=== PATIENT | male | born 1990 | race Caucasian/White ===

== ENCOUNTER 2018-07-20 19:22 | Inpatient (IN) | payer MEDICAID, OTHER ==
[~2018-07-20] VITALS: Ht 167.6 cm; Wt 77.3 kg
[2018-07-20] MEDS ORDERED: HYDROcodone/acetaminophen 10/325mg tab PO STA (19:33)
[2018-07-20] MEDS ORDERED: normal saline 1000ML IV soln IVB ONE (19:40)
[2018-07-20] MEDS ORDERED: ketorolac tromethamine 15mg/ml inj. IV ONE (19:40)
[2018-07-20] MEDS ORDERED: HYDROmorphone 1 mg/ml syringe IV ONE (19:45)
--- NOTE | 2018-07-20 19:59 | NUR ---
CONTACTED G[facility] AND RECEIVED
[2018-07-20] MEDS ORDERED: TETanus/Pertussis (Acell)/Diphther VAC/PF (Tdap-Adult) 0.5ml syringe IM ONE (20:10)
[2018-07-20] MEDS ORDERED: ceFAZolin 1GM/D5W- ADD-VANTAGE 50 ML IV ONE (20:15)
[2018-07-20 20:45] LABS: BASOPHILS % (AUTO) 0.3 % (0-1); EOSINOPHILS # (AUTO) 0.1 X10'3 (0-0.9); EOSINOPHILS % (AUTO) 1.2 % (0-6); HEMATOCRIT 45.9 % (42.0-52.0); HEMOGLOBIN 15.4 g/dl (14.0-17.9); LYMPHOCYTES # (AUTO) 2.3 X10'3 (1.1-4.8); MEAN CORPUSCULAR HEMOGLOBIN 30.2 PG (27.0-31.0); MEAN CORPUSCULAR HGB CONC 33.6 g/dL (33.0-36.5); MEAN CORPUSCULAR VOLUME 89.6 FL (78-98); MEAN PLATELET VOLUME 8.4 FL (7.4-10.4); MONOCYTES # (AUTO) 0.7 X10'3 (0-0.9); MONOCYTES % (AUTO) 5.7 % (2-12); NEUTROPHILS # (AUTO) 8.9 X10'3 (1.8-7.7); NEUTROPHILS % (AUTO) 73.8 % (42-75); PLATELET COUNT 195 X10'3 (140-440); RED BLOOD COUNT 5.12 X10'6 (4.70-6.10); RED CELL DISTRIBUTION WIDTH 13.1 % (11.5-14.5)
[2018-07-20] MEDS ORDERED: ondansetron/PF 4mg/2ml inj IV PRN (20:45)
[2018-07-20] MEDS ORDERED: acetaminophen 325mg tablet PO PRN ×2 (20:45)
[2018-07-20] MEDS ORDERED: magnesium Cl slow-release 64mg tablet PO PRN (20:45)
[2018-07-20] MEDS ORDERED: morphine 2 MG/ML inj. syringe IV PRN (20:45)
[2018-07-20] MEDS ORDERED: potassium Cl 20 mEq SR tablet PO PRN ×2 (20:45)
[2018-07-20] MEDS ORDERED: magnesium 4gm in 100ml NS 100 ML IV PRN (20:45)
[2018-07-20] MEDS ORDERED: magnesium hydroxide 30ml (MOM) UD suspension PO PRN (20:45)
[2018-07-20] MEDS ORDERED: mag hydrox/Alum hydrox/simeth 30ml oral suspension PO PRN (20:45)
[2018-07-20] MEDS ORDERED: potassium Cl 40MEQ/NS 500ml 500 ML IV PRN (20:45)
[2018-07-20] MEDS ORDERED: magnesium 2GM in 50ml NS 50 ML IV PRN (20:45)
[2018-07-20 20:57] LABS: ALANINE AMINOTRANSFERASE 166 U/L (12-78); ALBUMIN 3.8 G/DL (3.4-5.0); ALBUMIN/GLOBULIN RATIO 1.3 (1.1-1.5); ALKALINE PHOSPHATASE 61 IU/L (46-116); ANION GAP 8 (8-16); ASPARTATE AMINO TRANSFERASE 45 U/L (10-37); BILIRUBIN,TOTAL 0.8 MG/DL (0.1-1.0); BLOOD UREA NITROGEN 16 MG/DL (7-18); BUN/CREATININE RATIO 17.6 (5.4-32.0); CALCIUM 8.3 MG/DL (8.5-10.1); CHLORIDE 106 MMOL/L (99-107); CREATININE 0.91 MG/DL (0.60-1.10); GLUCOSE 122 MG/DL (70-104); POTASSIUM 3.4 MMOL/L (3.5-5.1); SODIUM 139 MMOL/L (135-145); TOTAL CARBON DIOXIDE 25.1 MMOL/L (24-32); TOTAL PROTEIN 6.8 G/DL (6.4-8.2); eGFR > 90 ML/MIN
[2018-07-20 21:00] VITALS: BP 124/91
[2018-07-20] MEDS: normal saline 1000ml 1,000 ML IV SCH ×2 (21:10→23:55)
[2018-07-20 21:18] LABS: PARTIAL THROMBOPLASTIN TIME 24 SECONDS (22-32)
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
[2018-07-20] MEDS ORDERED: NO HOME MEDS (21:33)
--- NOTE | 2018-07-20 22:21 | NUR ---
Paged network control technician to come stabilize arm. Patient unable to go to surgery tonight.
[2018-07-20] MEDS: HYDROcodone/acetaminophen 5mg/325mg tablet PO PRN ×2 (23:05→23:22)
[2018-07-20] MEDS: morphine 2 MG/ML inj. syringe IV PRN (23:27)
[2018-07-21] VITALS (17 sets, daily range): BP systolic 99–129; BP diastolic 63–89
[2018-07-21] MEDS ORDERED: ceFAZolin 1GM/D5W- ADD-VANTAGE 50 ML IV SCH
[2018-07-21] MEDS: potassium CL 10mEq/100ml bag 100 ML IV PRN ×4 (00:52→05:39)
[2018-07-21] MEDS: morphine 2 MG/ML inj. syringe IV PRN ×2 (03:10→21:06)
[2018-07-21] MEDS ORDERED: vancomycin 1,000mg inj ONE (05:54)
--- NOTE | 2018-07-21 06:10 | NUR ---
Patient in room [facility]TH[facility] 4024. I have received report from RUSLAN MENESES and had the opportunity to ask questions and assume patient care.
--- NOTE | 2018-07-21 06:12 | NUR ---
PATIENT REPORT GIVEN TO TREVA MENESES.
--- NOTE | 2018-07-21 06:45 | NUR ---
PATIENT GOING TO THE OR, REPORT GIVEN TO DANGELO MENESES.
--- NOTE | 2018-07-21 06:46 | NUR ---
PATIENT REPORT GIVEN TO GADIEL MENESES.
[2018-07-21] MEDS ORDERED: sevoflurane 250ml liquid IH ONE (07:00)
[2018-07-21] MEDS ORDERED: midazolam 2 mg/2 ml injection ONE (07:05)
[2018-07-21] MEDS ORDERED: fentaNYL/PF 50MCG/1 ML 2ML syringe ONE (07:05)
[2018-07-21 07:16] LABS: ALBUMIN 3.6 G/DL (3.4-5.0); ANION GAP 7 (8-16); BLOOD UREA NITROGEN 15 MG/DL (7-18); BUN/CREATININE RATIO 17.9 (5.4-32.0); CALCIUM 8.9 MG/DL (8.5-10.1); CHLORIDE 106 MMOL/L (99-107); CREATININE 0.84 MG/DL (0.60-1.10); GLUCOSE 102 MG/DL (70-104); MAGNESIUM 1.8 MG/DL (1.5-2.4); SODIUM 138 MMOL/L (135-145); TOTAL CARBON DIOXIDE 25.3 MMOL/L (24-32); eGFR > 90 ML/MIN
[2018-07-21 07:22] LABS: BASOPHILS % (AUTO) 0.2 % (0-1); EOSINOPHILS # (AUTO) 0.1 X10'3 (0-0.9); EOSINOPHILS % (AUTO) 1.4 % (0-6); HEMATOCRIT 41.8 % (42.0-52.0); HEMOGLOBIN 14.4 g/dl (14.0-17.9); LYMPHOCYTES # (AUTO) 2.2 X10'3 (1.1-4.8); LYMPHOCYTES % (AUTO) 26.3 % (21-51); MEAN CORPUSCULAR HEMOGLOBIN 30.5 PG (27.0-31.0); MEAN CORPUSCULAR HGB CONC 34.4 g/dL (33.0-36.5); MEAN CORPUSCULAR VOLUME 88.5 FL (78-98); MEAN PLATELET VOLUME 8.6 FL (7.4-10.4); MONOCYTES # (AUTO) 0.8 X10'3 (0-0.9); MONOCYTES % (AUTO) 9.9 % (2-12); NEUTROPHILS # (AUTO) 5.1 X10'3 (1.8-7.7); NEUTROPHILS % (AUTO) 62.2 % (42-75); PLATELET COUNT 201 X10'3 (140-440); RED BLOOD COUNT 4.72 X10'6 (4.70-6.10); RED CELL DISTRIBUTION WIDTH 12.8 % (11.5-14.5); WHITE BLOOD COUNT 8.3 X10'3 (4.5-11.0)
[2018-07-21] MEDS ORDERED: ceFAZolin 1000mg inj ONE (07:29)
[2018-07-21] MEDS ORDERED: propofol inj 20 ML IV ONE (07:29)
[2018-07-21] MEDS: K and/or MAG REPLACEMENT MC SCH (08:00)
[2018-07-21] MEDS ORDERED: ringers solution, lacted 1,000 ML IV SCH (08:22)
[2018-07-21] MEDS ORDERED: proCHLORperazine 10 MG/2 ml inj IV PRN (08:25)
[2018-07-21] MEDS ORDERED: ondansetron/PF 4mg/2ml inj IV PRN (08:25)
[2018-07-21] MEDS ORDERED: meperidine/PF 25mg/ml syringe IV PRN ×3 (08:25)
[2018-07-21] MEDS ORDERED: morphine 4 MG/ML inj SYRINge IV PRN ×2 (08:25)
[2018-07-21] MEDS ORDERED: dexamethasone sod phosphate 4mg/ml inj. ONE (09:01)
[2018-07-21] MEDS ORDERED: ROPIVAcaine 0.5% (5mg/ml) 30ml vial ONE (09:01)
--- NOTE | 2018-07-21 09:20 | NUR ---
Received from OR via BED, accompanied by Anesthesiologist KAYCEE and report given by Anesthesiolgist. PT SLEEPY, OXYGENATING WELL ON 10 LPM O2 VIA MASK, NO RESP DISTRESS NOTED. PT DENIES NAUSEA OR PAIN, HAD LEFT AXILLARY BLOCK. SPLINT TO LEFT ARM WITH MOHIT BANDAGE OVER IT, CDI. FINGERS ARE P/W/D ON LEFT HAND. CMS CHECK WNL. SCDS ON, VSS.
--- NOTE | 2018-07-21 10:20 | NUR ---
Report called to receiving nurse. Transferred via BED Belongings IN PT ROOM, GLASSES WITH PT UPON RETURN TO ROOM. PT HAS NO COMPLAINTS OF PAIN, VSS. TOLERATING PO FLUIDS WELL. TRANSFERRED BACK TO ORTHO FLOOR IN STABLE CONDITION. Special Issues communicated to receiving nurse.
--- NOTE | 2018-07-21 10:25 | NUR ---
ASSUMED CARE, RECEIVED REPORT FROM DEVEN MENESES, POST OP VITALS STARTED, PT A&O X4, 0/10 PAIN, WILL CONTINUE TO MONITOR.
[2018-07-21] MEDS: cefazolin/dext.iso 2gm/100ml 100 ML IV SCH (16:08)
[2018-07-21] MEDS: normal saline 1000ml 1,000 ML IV SCH (16:08)
--- NOTE | 2018-07-21 18:31 | NUR ---
REPORT RECEIVED FROM TREVA MENESES.
[2018-07-21] MEDS: lactobacillus rhamnosus 10,000 MMU CELLS/CAPSULE PO SCH (19:05)
[2018-07-21] MEDS: HYDROcodone/acetaminophen 5mg/325mg tablet PO PRN (19:05)
[2018-07-21] MEDS: HYDROcodone/acetaminophen 10/325mg tab PO PRN (23:03)
[2018-07-22] MEDS: morphine 2 MG/ML inj. syringe IV PRN ×4 (01:24→19:48)
[2018-07-22] MEDS: cefazolin/dext.iso 2gm/100ml 100 ML IV SCH ×3 (01:27→15:28)
[2018-07-22 02:00] VITALS: BP 125/71
[2018-07-22] MEDS: HYDROcodone/acetaminophen 10/325mg tab PO PRN ×4 (03:21→22:06)
[2018-07-22 06:00] VITALS: BP 132/76
--- NOTE | 2018-07-22 06:19 | NUR ---
PATIENT REPORT GIVEN TO DIEGO MENESES.
--- NOTE | 2018-07-22 06:26 | NUR ---
RECEIVED REPORT FROM RUSLAN Agee RN
[2018-07-22] MEDS: K and/or MAG REPLACEMENT MC SCH (06:57)
[2018-07-22] MEDS: lactobacillus rhamnosus 10,000 MMU CELLS/CAPSULE PO SCH ×2 (07:08→20:00)
[2018-07-22 07:17] LABS: BASOPHILS % (AUTO) 0.2 % (0-1); EOSINOPHILS % (AUTO) 0.1 % (0-6); HEMATOCRIT 40.6 % (42.0-52.0); HEMOGLOBIN 13.7 g/dl (14.0-17.9); LYMPHOCYTES # (AUTO) 2.1 X10'3 (1.1-4.8); LYMPHOCYTES % (AUTO) 18.6 % (21-51); MEAN CORPUSCULAR HEMOGLOBIN 30.1 PG (27.0-31.0); MEAN CORPUSCULAR HGB CONC 33.9 g/dL (33.0-36.5); MEAN CORPUSCULAR VOLUME 88.7 FL (78-98); MEAN PLATELET VOLUME 8.4 FL (7.4-10.4); MONOCYTES % (AUTO) 9.1 % (2-12); NEUTROPHILS # (AUTO) 8.3 X10'3 (1.8-7.7); PLATELET COUNT 190 X10'3 (140-440); RED BLOOD COUNT 4.57 X10'6 (4.70-6.10); RED CELL DISTRIBUTION WIDTH 12.8 % (11.5-14.5); WHITE BLOOD COUNT 11.5 X10'3 (4.5-11.0)
[2018-07-22 07:28] LABS: ALBUMIN 3.7 G/DL (3.4-5.0); ANION GAP 5 (8-16); BLOOD UREA NITROGEN 11 MG/DL (7-18); BUN/CREATININE RATIO 14.7 (5.4-32.0); CALCIUM 8.9 MG/DL (8.5-10.1); CHLORIDE 105 MMOL/L (99-107); CREATININE 0.75 MG/DL (0.60-1.10); GLUCOSE 106 MG/DL (70-104); MAGNESIUM 1.7 MG/DL (1.5-2.4); POTASSIUM 4.2 MMOL/L (3.5-5.1); SODIUM 140 MMOL/L (135-145); TOTAL CARBON DIOXIDE 29.9 MMOL/L (24-32); eGFR > 90 ML/MIN
[2018-07-22 10:00] VITALS: BP 126/62
[2018-07-22 18:00] VITALS: BP 134/92
--- NOTE | 2018-07-22 18:55 | NUR ---
gave report to meliza tello
[2018-07-22 22:00] VITALS: BP 150/82
[2018-07-23] MEDS: cefazolin/dext.iso 2gm/100ml 100 ML IV SCH ×2 (01:07→07:45)
[2018-07-23] MEDS: HYDROcodone/acetaminophen 10/325mg tab PO PRN ×2 (05:08→10:14)
--- NOTE | 2018-07-23 06:31 | NUR ---
Problems reprioritized. Patient report given, questions answered & plan of care reviewed with meliza Valente.
[2018-07-23 06:54] VITALS: BP 138/89
[2018-07-23 07:17] LABS: ALBUMIN 3.5 G/DL (3.4-5.0); ANION GAP 8 (8-16); BLOOD UREA NITROGEN 15 MG/DL (7-18); CALCIUM 8.7 MG/DL (8.5-10.1); CHLORIDE 103 MMOL/L (99-107); CREATININE 0.88 MG/DL (0.60-1.10); GLUCOSE 92 MG/DL (70-104); MAGNESIUM 1.7 MG/DL (1.5-2.4); POTASSIUM 3.8 MMOL/L (3.5-5.1); SODIUM 139 MMOL/L (135-145); TOTAL CARBON DIOXIDE 28.3 MMOL/L (24-32); eGFR > 90 ML/MIN
[2018-07-23 07:21] LABS: EOSINOPHILS # (AUTO) 0.1 X10'3 (0-0.9); HEMATOCRIT 40.9 % (42.0-52.0); HEMOGLOBIN 14.1 g/dl (14.0-17.9); MEAN CORPUSCULAR HEMOGLOBIN 30.6 PG (27.0-31.0); MEAN PLATELET VOLUME 8.3 FL (7.4-10.4); WHITE BLOOD COUNT 9.4 X10'3 (4.5-11.0)
[2018-07-23 07:22] LABS: BASOPHILS % (AUTO) 0.2 % (0-1); EOSINOPHILS % (AUTO) 0.7 % (0-6); LYMPHOCYTES # (AUTO) 2.9 X10'3 (1.1-4.8); LYMPHOCYTES % (AUTO) 30.5 % (21-51); MEAN CORPUSCULAR HGB CONC 34.6 g/dL (33.0-36.5); MEAN CORPUSCULAR VOLUME 88.6 FL (78-98); MONOCYTES # (AUTO) 0.8 X10'3 (0-0.9); MONOCYTES % (AUTO) 8.3 % (2-12); NEUTROPHILS # (AUTO) 5.7 X10'3 (1.8-7.7); NEUTROPHILS % (AUTO) 60.3 % (42-75); PLATELET COUNT 192 X10'3 (140-440); RED BLOOD COUNT 4.62 X10'6 (4.70-6.10); RED CELL DISTRIBUTION WIDTH 12.7 % (11.5-14.5)
[2018-07-23] MEDS: K and/or MAG REPLACEMENT MC SCH (07:45)
[2018-07-23] MEDS: lactobacillus rhamnosus 10,000 MMU CELLS/CAPSULE PO SCH (07:45)
[2018-07-23 11:00] VITALS: BP 129/69
[2018-07-23] MEDS ORDERED: AMOX-422 PO (11:26)
[2018-07-23] MEDS ORDERED: LACT1CAP26 PO (11:26)
[2018-07-23] MEDS ORDERED: HYDR-3964 PO (11:26)
== END 2018-07-23 12:30 | disposition home or self-care (01) | DRG 315 ==
LOC: EEVIPCON 19:24 → ER 19:24 → EEVIPCON 21:43 → ORTHO 4S 21:43
PROVIDERS: ADMIT Hospitalist; ATTEND Hospitalist
PROC: 0PSL04Z Reposition Left Ulna with Internal Fixation Device, Open Approach (ICD-10-PCS; 2018-07-21)
PROC: 0J8 Subcutaneous Tissue and Fascia, Division (ICD-10-PCS; 2018-07-21)
PROC: 0PSJ04Z Reposition Left Radius with Internal Fixation Device, Open Approach (ICD-10-PCS; principal; 2018-07-21 06:56)
DX: S52.202C Unspecified fracture of shaft of left ulna, initial encounter for open fracture type IIIA, IIIB, or IIIC (principal); F12.90 Cannabis use, unspecified, uncomplicated; S52.302C Unspecified fracture of shaft of left radius, initial encounter for open fracture type IIIA, IIIB, or IIIC; F17.200 Nicotine dependence, unspecified, uncomplicated; Y04.2XXA Assault by strike against or bumped into by another person, initial encounter; Y93.01 Activity, walking, marching and hiking; Y92.89 Other specified places as the place of occurrence of the external cause; Y99.8 Other external cause status
CPT/HCPCS: 36415; 73030; 73090; 80048; 80053; 82948; 83735; 85025; 85610; 85730; 87070; 90471; 90715; 96365; 96375; 99285; A6222; A6449; A7000; C1713; G0378; J0690; J1100; J1170; J1885; J2250; J2270; J2405; J2704; J2795; J3010; J3370; J3480; J7030; J7120